=== PATIENT | female | born 1965 | race Two or more races ===

== ENCOUNTER 2023-07-27 08:16 | Emergency (ER) | payer MEDICAID ==
[~2023-07-27] VITALS: Ht 167.6 cm; Wt 57.2 kg
[2023-07-27 09:33] VITALS: BP 133/80; TEMP 98.2; O2SAT 100
== END 2023-07-27 09:34 | disposition home or self-care (01) ==
LOC: ER 08:21
DX: S52.571A Other intraarticular fracture of lower end of right radius, initial encounter for closed fracture (principal); W18.30XA Fall on same level, unspecified, initial encounter; Y93.89 Activity, other specified; Y92.89 Other specified places as the place of occurrence of the external cause; Y99.8 Other external cause status
CPT/HCPCS: 73110